=== PATIENT | male | born 1940 | race Caucasian/White ===

== ENCOUNTER 2018-03-20 07:08 | Inpatient (IN) | payer BC, OTHER ==
--- NOTE | 2018-03-20 07:09 | PDOC ---
History of Present Illness - General Chief Complaint: Pain, Acute Stated Complaint: LEFT ARM PAIN Time Seen by Provider: 03/20/18 07:09 History Source: Patient Exam Limitations: No Limitations - History of Present Illness Initial Comments: 78 yo M history CAD, GERD presents with cp radiating down the left arm that started this morning. He states that he was diagnosed with CAD after an abnormal stress test followed by a cardiac cath last week, he is scheduled for a 4V CABG in 4 days. He denies SOB, N/V, diaphoresis, leg swelling. Cp was a pressure sensation, has improved now. He continues to have pain in the left arm. He did not take his aspirin this morning. Past History - Past Medical History Allergies/Adverse Reactions: Allergies Allergy/AdvReac Type Severity Reaction Status Date / Time No Known Allergies Allergy Verified 03/20/18 07:09 Home Medications: Ambulatory Orders Aspirin [Aspirin EC] 81 mg PO DAILY 03/20/18 Esomeprazole Magnesium [Nexium 24Hr] 40 mg PO DAILY 03/20/18 Gabapentin 800 mg PO QID 03/20/18 Rosuvastatin Calcium [Crestor] 5 mg PO DAILY 03/20/18 Valacyclovir HCl [Valtrex] 500 mg PO DAILY 03/20/18 Review of Systems - Review of Systems Able to Perform ROS?: Yes Comments:: GENERAL/CONSTITUTIONAL: No fever or chills. No weakness. HEAD, EYES, EARS, NOSE AND THROAT: No change in vision. No ear pain or discharge. No sore throat. CARDIOVASCULAR: +Chest pain, no shortness of breath. RESPIRATORY: No cough, wheezing, or hemoptysis. GASTROINTESTINAL: No nausea, vomiting, diarrhea or constipation. GENITOURINARY: No dysuria, frequency, or change in urination. MUSCULOSKELETAL: No joint or muscle swelling or pain. No neck or back pain. +L arm pain. SKIN: No rash NEUROLOGIC: No headache, vertigo, loss of consciousness, or change in strength/ sensation. ENDOCRINE: No increased thirst. No abnormal weight change. HEMATOLOGIC/LYMPHATIC: No anemia, easy bleeding, or history of blood clots. ALLERGIC/IMMUNOLOGIC: No hives or skin allergy. *Physical Exam - Physical Exam Comments: GENERAL: Awake, alert, and fully oriented, in no acute distress HEAD: No signs of trauma EYES: PERRLA, EOMI, sclera anicteric, conjunctiva clear ENT: Auricles normal inspection, hearing grossly normal, nares patent, oropharynx clear without exudates. Moist mucosa NECK: Normal ROM, supple, no lymphadenopathy, JVD, or masses LUNGS: Breath sounds equal, clear to auscultation bilaterally. No wheezes, and no crackles HEART: Regular rate and rhythm, normal S1 and S2, no murmurs, rubs or gallops ABDOMEN: Soft, nontender, normoactive bowel sounds. No guarding, no rebound. No masses EXTREMITIES: Normal range of motion, no edema. No clubbing or cyanosis. No cords, erythema, or tenderness NEUROLOGICAL: Cranial nerves II through XII grossly intact. Normal speech, normal gait. Motor and sensation intact. SKIN: Warm, Dry, normal turgor, no rashes or lesions noted. Heart Score/ECG Review - History History: Highly suspicious - Electrocardiogram EKG: Normal - Age Age: >/= 65 - Risk Factors Risk Factors Heart Score: Yes Hx Hypertension, Yes Positive family hx of cardiac disease, Yes Hx Obesity Based on the list above the patient has:: >/=3 risk factors or Hx atherosclerotic disease - ECG Impressions Comment:: EKG read 07:18- Sinus rhythm 63 bpm with 1st degree AV block. +LVH. No ST/T changes. ED Treatment Course - LABORATORY CBC & Chemistry Diagram: 03/20/18 07:23 03/20/18 07:23 Medical Decision Making - Medical Decision Making 03/20/18 07:33 Pt with recently diagnosed CAD- follows up with his primary and document processing specialist at [facility]. He is scheduled for CABG later this week. Initial EKG with no ST/T changes. Will f/u CXR and labs, call his cardio to discuss, as he will likely require transfer. 03/20/18 08:53 Lab results d/w patient at bedside. He has already been accepted to [facility] on the service of his document processing specialist, Dr. Charles. Awaiting confirmation of bed placement and ambulance. 03/20/18 12:25 Called [facility] to follow up. They are still awaiting a cardiac step-down bed. Will keep patient NPO, as it is unclear if he is having CABG today (and transfer center was not certain). 03/20/18 15:46 Called [facility] transfer center- patient has priority for transfer, however, they do not yet have a bed. 03/20/18 15:57 D/w hospitalist MOSAIC LAYER Daniel, as patient has been in ED for almost 9 hours and still not bed available at [facility]. Will place on obs on hospitalist service. Patient is currently on heparin drip, mildly bradycardic (which is his baseline) . *DC/Admit/Observation/Transfer Diagnosis at time of Disposition: Chest pain Qualifiers: Chest pain type: unspecified Qualified Code(s): R07.9 - Chest pain, unspecified - Discharge Dispostion Condition at time of disposition: Guarded Decision to Admit order: Yes - Referrals - Patient Instructions - Post Discharge Activity - Transfer to Acute Care Facility Receiving Facility: [facility]) Accepting Physician:: Dr. Charles
[2018-03-20] MEDS ORDERED: ASPIRIN 81 MG CHEWABLE TABLETS PO ONE (07:24)
[2018-03-20 08:10] LABS: BASO % 0.8 % (0-2.0); EOS % 5.2 % (0-4.5); HEMATOCRIT 44.8 % (35.4-49); HEMOGLOBIN 14.9 GM/dl (11.7-16.9); LYMPH % 39.3 % (8-40); MCH 32.9 pg (25.7-33.7); MCHC 33.4 g/dl (32.0-35.9); MEAN CELL VOLUME 98.6 fl (80-96); MEAN PLT VOLUME 8.7 fl (7.5-11.1); MONO % 8.8 % (3.8-10.2); NEUT % 45.9 % (42.8-82.8); PLATELET COUNT 160 K/MM3 (134-434); RBC 4.55 M/mm3 (4.00-5.60); RDW 13.1 % (11.9-15.9); WHITE BLOOD COUNT 5.9 K/mm3 (4.0-10.8)
[2018-03-20 08:11] LABS: ALBUMIN 4.2 g/dl (3.5-5.0); ALK PHOS 42 U/L (32-92); ANION GAP 7 MMOL/L (8-16); BILIRUBIN,TOTAL 0.5 mg/dl (0.2-1.0); BLOOD UREA NITROGEN 17 mg/dl (7-18); CALCIUM 9.2 mg/dl (8.4-10.2); CHLORIDE 105 mmol/L (98-107); CO2 28 mmol/L (22-28); CREATININE 1.1 mg/dl (0.6-1.3); GLUCOSE,RANDOM 119 mg/dl (74-106); POTASSIUM 4.5 mmol/L (3.5-5.1); SGOT/AST 27 U/L (10-42); SGPT/ALT 28 U/L (10-40); SODIUM 140 mmol/L (136-145); TOT PROT 6.6 g/dl (6.4-8.3)
[2018-03-20 08:57] LABS: INR 1.06 (0.82-1.09); PROTHROMBIN TIME (PATIENT) 11.9 SEC (10.2-13.0)
[2018-03-20 09:05] LABS: ACTIVATED PTT 26.9 SECONDS (25.2-36.5)
[2018-03-20] MEDS ORDERED: HEPARIN NA (PORCINE) 5,000 UNITS/ML 1ML VIAL IVPUSH ONE (10:21)
[2018-03-20] MEDS ORDERED: HEPARIN INFUSION - 25,000 UNITS/500 ML INFUS.BAG IVPB ONE (10:23)
[2018-03-20] MEDS ORDERED: HEPARIN NA (PORCINE) 5,000 UNITS/ML 1ML VIAL ONE (10:23)
[2018-03-20] MEDS ORDERED: HEPARIN INFUSION - 25,000 UNITS/500 ML INFUS.BAG IVPB SCH (10:30)
[2018-03-20] MEDS ORDERED: ROSUVASTATIN CA 5 MG TABLET (FP) PO ONE (15:58)
--- NOTE | 2018-03-20 16:19 | HP ---
CHIEF COMPLAINT: Chest pressure PCP: Dr. Jero South [phone] Forest Resources Professor: Dr. Dallas Charlse [phone] CT surgeon: Dr. 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 Presented to the ED today with a complaint of left upper arm pain which started when he got out of bed at about 6:30am. The pain lasted until about 7:30am when he arrived at the ED. There were no exacerbating or alleviating factors, the pain spontaneously resolved. Patient states he was diagnosed with CAD last week following an abnormal stress test and cardiac catheterization. He is scheduled for a four-vessel CABG on 03/24/[address] [facility] [address] Dr[address] Yost. During this morning's episode of left arm pain, there was no associated SOB, FRANKLIN, palpitations, dizziness, diaphoresis. Patient has not experienced orthopnea, PND, or lower extremity edema at any time. Patient has been accepted by [facility] for transfer, waiting on bed availability. ER course was notable for: (1) HR 50s (baseline) (2) Troponins neg x 2 (3) ECG: Sinus rhythm 63 bpm; 1st degree AV block (4) ASA 325mg x 1; heparin drip started Recent Travel: No PAST MEDICAL HISTORY: Hyperlipidemia Asymptomatic Bradycardia (baseline) Renal calculi (1967) Small fiber sensory neuropathy Coronary artery disease Obstructive sleep apnea Herpes keratitis PAST SURGICAL HISTORY: Craniotomy for a parasitic granuloma (1978) Hernia repair x 2 (1973, 1981) Social History: Smoking: no Alcohol: no Drugs: no Allergies No Known Allergies Allergy (Verified 03/20/18 07:09) HOME MEDICATIONS: Home Medications Medication Instructions Recorded Aspirin [Aspirin EC] 81 mg PO DAILY 03/20/18 Esomeprazole Magnesium [Nexium 40 mg PO DAILY 03/20/18 24Hr] Gabapentin 800 mg PO QID 03/20/18 Rosuvastatin Calcium [Crestor] 5 mg PO DAILY 03/20/18 Valacyclovir HCl [Valtrex] 500 mg PO DAILY 03/20/18 REVIEW OF SYSTEMS CONSTITUTIONAL: Absent: fever, chills, diaphoresis, generalized weakness, malaise, loss of appetite, weight change HEENT: Absent: rhinorrhea, nasal congestion, throat pain, throat swelling, difficulty swallowing, mouth swelling, ear pain, eye pain, visual changes CARDIOVASCULAR: +upper left arm pain x 1 hour Absent: chest pain, syncope, palpitations, irregular heart rate, lightheadedness , peripheral edema RESPIRATORY: Absent: cough, shortness of breath, dyspnea with exertion, orthopnea, wheezing, stridor, hemoptysis GASTROINTESTINAL: Absent: abdominal pain, abdominal distension, nausea, vomiting, diarrhea, constipation, melena, hematochezia GENITOURINARY: Absent: dysuria, frequency, urgency, hesitancy, hematuria, flank pain, genital pain MUSCULOSKELETAL: Absent: myalgia, arthralgia, joint swelling, back pain, neck pain SKIN: Absent: rash, itching, pallor HEMATOLOGIC/IMMUNOLOGIC: Absent: easy bleeding, easy bruising, lymphadenopathy, frequent infections ENDOCRINE: Absent: unexplained weight gain, unexplained weight loss, heat intolerance, cold intolerance NEUROLOGIC: Absent: headache, focal weakness or paresthesias, dizziness, unsteady gait, seizure, mental status changes, bladder or bowel incontinence PSYCHIATRIC: Absent: anxiety, depression, suicidal or homicidal ideation, hallucinations. PHYSICAL EXAMINATION Vital Signs Temperature 98.3 F 03/20/18 07:08 Pulse Rate 51 L 03/20/18 16:00 Respiratory Rate 12 03/20/18 16:00 Blood Pressure 151/79 03/20/18 16:00 O2 Sat by Pulse Oximetry (%) 99 03/20/18 16:00 GENERAL: Awake, alert, and fully oriented, in no acute distress. HEAD: Normal with no signs of trauma. LUNGS: Breath sounds equal, clear to auscultation bilaterally. No wheezes, and no crackles. No accessory muscle use. HEART: Regular rate and rhythm, S1 and S2 ABDOMEN: Soft, nontender, not distended MUSCULOSKELETAL: Normal range of motion at all joints. No bony deformities or tenderness. No CVA tenderness. UPPER EXTREMITIES: 2+ pulses, warm, well-perfused. No cyanosis. No clubbing. No peripheral edema. LOWER EXTREMITIES: 2+ pulses, warm, well-perfused. No calf tenderness. No peripheral edema. NEUROLOGICAL: Cranial nerves II-XII intact. Normal speech. Laboratory Results - last 24 hr 03/20/18 03/20/18 03/20/18 07:23 07:23 07:23 WBC 5.9 RBC 4.55 Hgb 14.9 Hct 44.8 MCV 98.6 H MCH 32.9 MCHC 33.4 RDW 13.1 Plt Count 160 MPV 8.7 Absolute Neuts (auto) 2.8 Neutrophils % 45.9 Lymphocytes % 39.3 Monocytes % 8.8 Eosinophils % 5.2 H Basophils % 0.8 PT with INR INR PTT (Actin FS) Sodium 140 Potassium 4.5 Chloride 105 Carbon Dioxide 28 Anion Gap 7 L BUN 17 Creatinine 1.1 Creat Clearance w eGFR > 60 Random Glucose 119 H Calcium 9.2 Total Bilirubin 0.5 AST 27 ALT 28 Alkaline Phosphatase 42 Creatine Kinase 493 H Creatine Kinase Index 1.8 CK-MB (CK-2) 9.1 H Troponin I < 0.03 Total Protein 6.6 Albumin 4.2 Blood Type Antibody Screen 03/20/18 03/20/18 03/20/18 07:25 07:27 14:56 WBC RBC Hgb Hct MCV MCH MCHC RDW Plt Count MPV Absolute Neuts (auto) Neutrophils % Lymphocytes % Monocytes % Eosinophils % Basophils % PT with INR 11.9 INR 1.06 PTT (Actin FS) 26.9 Sodium Potassium Chloride Carbon Dioxide Anion Gap BUN Creatinine Creat Clearance w eGFR Random Glucose Calcium Total Bilirubin AST ALT Alkaline Phosphatase Creatine Kinase Creatine Kinase Index CK-MB (CK-2) Troponin I < 0.03 Total Protein Albumin Blood Type A POSITIVE Antibody Screen Negative 03/20/18 15:04 WBC RBC Hgb Hct MCV MCH MCHC RDW Plt Count MPV Absolute Neuts (auto) Neutrophils % Lymphocytes % Monocytes % Eosinophils % Basophils % PT with INR INR PTT (Actin FS) Sodium Potassium Chloride Carbon Dioxide Anion Gap BUN Creatinine Creat Clearance w eGFR Random Glucose Calcium Total Bilirubin AST ALT Alkaline Phosphatase Creatine Kinase 94 Creatine Kinase Index CK-MB (CK-2) Troponin I Total Protein Albumin Blood Type Antibody Screen ASSESSMENT/PLAN 78 year-old male with a PMH significant for HLD, asymptomatic bradycardia, renal calculi, small fiber sensory neuropathy, h/o herpes keratitis, JP, and recently diagnosed CAD. Scheduled for a four-vessel CABG on 03/24 at [facility]. Placed on observation for chest pain, pending transfer. Acute coronary syndrome Coronary artery disease --positive stress test, positive cardiac cath one week ago, scheduled for CABG in four days --episode of chest pressure/pain this morning, now resolved --troponins neg x 2, third pending --ECG not indicative of acute ischemic event --continue ASA, statin --continue heparin drip --telemetry monitoring Hyperlipidemia --continue Crestor Asymptomatic bradycardia --at baseline --telemetry monitoring Renal calculi --stable Small fiber sensory neuropathy --at baseline --continue Gabapentin h/o Herpes keratitis --on prophylactic valacyclovir, continue JP --CPAP at night FEN Fluids: PO intake adequate Electrolytes: replete as indicated Nutrition: NPO after midnight DVT prophylaxis: on heparin drip Dispo: awaiting transfer to [facility]. Full code. Visit type - Emergency Visit Emergency Visit: Yes ED Registration Date: 03/21/18 Care time: The patient presented to the Emergency Department on the above date and was hospitalized for further evaluation of their emergent condition. - New Patient This patient is new to me today: No - Critical Care Critical Care patient: No
[2018-03-20] MEDS: valACYclovir HCL 500 MG TABLET (FP) PO SCH (16:40)
[2018-03-20] MEDS ORDERED: PANTOPRAZOLE SODIUM 40 MG VIAL IVPUSH SCH (16:45)
[2018-03-20] MEDS ORDERED: PANTOPRAZOLE SODIUM 40 MG VIAL ONE (16:53)
[2018-03-20 17:35] VITALS: BMI 27.7
[2018-03-20] MEDS ORDERED: PATIENT'S OWN MEDICATION (NON-FORMULARY) (Gabapentin [Gabapentin] 800 MG) PO SCH (18:00)
[2018-03-20] MEDS: GABAPENTIN 400 MG CAPSULE (FP) PO SCH ×2 (18:04→21:25)
[2018-03-20] MEDS: PANTOPRAZOLE SODIUM 40 MG VIAL IVPUSH SCH (21:25)
[2018-03-20] MEDS ORDERED: ROSUVASTATIN CA 5 MG TABLET (FP) PO SCH (22:00)
[2018-03-20] MEDS ORDERED: traZODone HCL 50 MG TABLET (FP) PO SCH (22:00)
[2018-03-20] MEDS ORDERED: FLUTICASONE PROP 0.05% 16 GM NASAL SPRAY NS SCH (22:00)
[2018-03-21 08:38] LABS: ALBUMIN 3.8 g/dl (3.5-5.0); ALK PHOS 41 U/L (32-92); ANION GAP 6 MMOL/L (8-16); BILIRUBIN,TOTAL 0.8 mg/dl (0.2-1.0); BLOOD UREA NITROGEN 17 mg/dl (7-18); CALCIUM 8.8 mg/dl (8.4-10.2); CHLORIDE 103 mmol/L (98-107); CO2 26 mmol/L (22-28); CREATININE 1.1 mg/dl (0.6-1.3); GLUCOSE,RANDOM 119 mg/dl (74-106); MAGNESIUM 1.9 mg/dL (1.8-2.4); PHOSPHOROUS 3.9 mg/dl (2.5-4.6); SGOT/AST 22 U/L (10-42); SGPT/ALT 23 U/L (10-40); SODIUM 135 mmol/L (136-145); TOT PROT 6.2 g/dl (6.4-8.3)
[2018-03-21 09:38] LABS: BASO % 0.8 % (0-2.0); EOS % 3.8 % (0-4.5); HEMATOCRIT 41.9 % (35.4-49); HEMOGLOBIN 14.5 GM/dl (11.7-16.9); LYMPH % 38.6 % (8-40); MCH 33.7 pg (25.7-33.7); MCHC 34.5 g/dl (32.0-35.9); MEAN CELL VOLUME 97.8 fl (80-96); MEAN PLT VOLUME 8.8 fl (7.5-11.1); MONO % 7.4 % (3.8-10.2); NEUT % 49.4 % (42.8-82.8); PLATELET COUNT 162 K/MM3 (134-434); RBC 4.29 M/mm3 (4.00-5.60); RDW 13.2 % (11.9-15.9); WHITE BLOOD COUNT 6.9 K/mm3 (4.0-10.8)
[2018-03-21] MEDS ORDERED: ASPIRIN 81 MG CHEWABLE TABLETS PO SCH (10:00)
[2018-03-21] MEDS ORDERED: ASPIRIN COATED 81 MG TABLET.EC PO SCH (10:00)
[2018-03-21] MEDS: valACYclovir HCL 500 MG TABLET (FP) PO SCH (10:04)
[2018-03-21] MEDS: PANTOPRAZOLE SODIUM 40 MG VIAL IVPUSH SCH (10:05)
[2018-03-21] MEDS: GABAPENTIN 400 MG CAPSULE (FP) PO SCH ×3 (10:05→17:59)
--- NOTE | 2018-03-21 10:22 | CON.CARD ---
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 Magdaleno Charles at [facility]) and scheduled for CABG with Dr. Turner Yost this week, in addition, history of hypercholesterolemia, renal calculi, JP and small fiber sensory neuropathy. He presented to [facility] with left arm pain which has resolved spontaneously. He is currently on Heparin drip. He denies SOB or palpitations. He denies paroxysmal nocturnal dyspnea or orthopnea. He denies nausea, vomiting , diarrhea or abdominal pain. He denies headache or lightheadedness. He is currently awaiting transfer to [facility]. PAST SURGICAL HISTORY: Craniotomy for a parasitic granuloma (1978) Hernia repair x 2 (1973, 1981) - History Source History Provided By: Patient, Medical Record Limitations to Obtaining History: No Limitations - Past Medical History Cardio/Vascular: Yes: Hyperlipdemia Endocrine: No: Diabetes Mellitus Additional Medical History: Paracytic granuloma, renal calculi, neuropathy - Past Surgical History Past Surgical History: Yes: Craniotomy, Hernia Repair - Alcohol/Substance Use Hx Alcohol Use: No - Smoking History Smoking history: Never smoked Have you smoked in the past 12 months: No Home Medications - Allergies Allergies/Adverse Reactions: Allergies Allergy/AdvReac Type Severity Reaction Status Date / Time No Known Allergies Allergy Verified 03/20/18 07:09 - Home Medications Home Medications: Ambulatory Orders Aspirin [ASA -] 81 mg PO DAILY tab.chew 03/20/18 Azelastine HCl 1 spray IH BID 03/20/18 Esomeprazole Magnesium [Nexium 24Hr] 40 mg PO BID 03/20/18 Fluticasone Prop 0.05% Nasal [Flonase -] 2 spray IH HS 03/20/18 Gabapentin [Neurontin -] 800 mg PO QID capsule 03/20/18 Rosuvastatin [Crestor -] 5 mg PO DAILY tablet 03/20/18 Trazodone HCl 150 mg PO HS 03/20/18 Valacyclovir HCl [Valtrex -] 500 mg PO DAILY tablet 03/20/18 Review of Systems - Review of Systems Constitutional: denies: Chills, Fever Cardiovascular: reports: Chest Pain. denies: Palpitations, Shortness of Breath Respiratory: denies: Cough, Hemoptysis, Orthopnea, PND, SOB, SOB on Exertion Gastrointestinal: denies: Abdominal Pain, Constipation, Diarrhea, Melena, Nausea , Rectal Bleeding, Vomiting Neurological: denies: Dizziness, Headache, Seizure, Syncope Vital Signs: Vital Signs Temperature 98.3 F 03/21/18 09:00 Pulse Rate 65 03/21/18 09:00 Respiratory Rate 18 03/21/18 09:00 Blood Pressure 134/58 L 03/21/18 09:00 O2 Sat by Pulse Oximetry (%) 98 03/21/18 09:00 Constitutional: Yes: Well Nourished Eyes: Yes: Conjunctiva Clear, PERRL HENT: Yes: Atraumatic Neck: Yes: Supple Respiratory: Yes: Regular, CTA Bilaterally Gastrointestinal: Yes: Normal Bowel Sounds, Soft. No: Tenderness Cardiovascular: Yes: Regular Rate and Rhythm JVD: No Carotid Bruit: No PMI: Non-Displaced Heart Sounds: Yes: S1, S2 Edema: No - Other Data Labs, Other Data: CBC, BMP 03/21/18 07:35 03/21/18 07:35 INR, PTT INR 1.06 (0.82-1.09) 03/20/18 07:27 Troponin, BNP 03/20/18 03/20/18 14:56 21:00 Troponin I < 0.03 < 0.03 Sinus bradycardia Imaging - Results Chest X-ray: Report Reviewed (Unremarkable) EKG: Report Reviewed Problem List - Problems (1) CAD (coronary artery disease) Code(s): I25.10 - ATHSCL HEART DISEASE OF [place] CORONARY ARTERY W/O ANG PCTRS (2) Hypercholesterolemia Code(s): E78.00 - PURE HYPERCHOLESTEROLEMIA, UNSPECIFIED (3) Neuropathy Code(s): G62.9 - POLYNEUROPATHY, UNSPECIFIED (4) Renal calculi Code(s): N20.0 - CALCULUS OF KIDNEY (5) JP (obstructive sleep apnea) Code(s): G47.33 - OBSTRUCTIVE SLEEP APNEA (ADULT) (PEDIATRIC) (6) Chest pain Code(s): R07.9 - CHEST PAIN, UNSPECIFIED Qualifiers: Chest pain type: unspecified Qualified Code(s): R07.9 - Chest pain, unspecified Assessment/Plan 1. Multivessel CAD awaiting CABG, angina 2. Hypercholesterolemia 3. OSAS 4. History of neuropathy PLAN: 1. Heparin drip for now, but may be stopped once troponins are negative 2. Discontinue ASA as preparation for CABG 3. Continue Crestor 4. Serial cardiac enzymes 5. Transfer arrangements to [facility]. Await bed at [facility] Further plans are to follow Chetan Mccurdy MD
[2018-03-21] MEDS ORDERED: HEPARIN NA (PORCINE) 5,000 UNITS/ML 1ML VIAL IVPUSH PRN ×2 (12:14)
[2018-03-21] MEDS ORDERED: HEPARIN INFUSION - 25,000 UNITS/500 ML INFUS.BAG IVPB SCH (12:15)
--- NOTE | 2018-03-21 12:59 | EKG ---
Test Reason : Blood Pressure : / mmHG Vent. Rate : 056 BPM Atrial Rate : 056 BPM P-R Int : 194 ms QRS Dur : 094 ms QT Int : 454 ms P-R-T Axes : 059 -27 038 degrees QTc Int : 438 ms SINUS BRADYCARDIA MINIMAL VOLTAGE CRITERIA FOR LVH, MAY BE NORMAL VARIANT CANNOT RULE OUT ANTERIOR INFARCT , AGE UNDETERMINED ABNORMAL ECG NO PREVIOUS ECGS AVAILABLE Confirmed by Gopal Blas ([id number]) on 03/21/2018 12:59:23 PM Referred By: MARK OLIVERA Confirmed By:Gopal Blas
--- NOTE | 2018-03-21 13:03 | EKG ---
Test Reason : Blood Pressure : / mmHG Vent. Rate : 063 BPM Atrial Rate : 063 BPM P-R Int : 210 ms QRS Dur : 096 ms QT Int : 442 ms P-R-T Axes : 072 -29 069 degrees QTc Int : 452 ms SINUS RHYTHM WITH 1ST DEGREE A-V BLOCK MINIMAL VOLTAGE CRITERIA FOR LVH, MAY BE NORMAL VARIANT BORDERLINE ECG NO PREVIOUS ECGS AVAILABLE Confirmed by Gopal Blas ([id number]) on 03/21/2018 1:02:56 PM Referred By: MARIA ELENA COATS Confirmed By:Gopal Blas
--- NOTE | 2018-03-21 16:20 | DS ---
Physical Exam: SUBJECTIVE: Patient seen and examined oob to chair. Feels well. No further episodes of chest or arm discomfort. OBJECTIVE: Vital Signs Period Temp Pulse Resp BP Sys/Arellano Pulse Ox Last 24 Hr 98.2 F-98.3 F 48-65 16-18 126-161/50-77 94-99 PHYSICAL EXAM GENERAL: Awake, alert, and fully oriented, in no acute distress. HEAD: Normal with no signs of trauma. LUNGS: Breath sounds equal, clear to auscultation bilaterally. No wheezes, and no crackles. No accessory muscle use. HEART: Regular rate and rhythm, S1 and S2 ABDOMEN: Soft, nontender, not distended MUSCULOSKELETAL: Normal range of motion at all joints. No bony deformities or tenderness. No CVA tenderness. UPPER EXTREMITIES: 2+ pulses, warm, well-perfused. No cyanosis. No clubbing. No peripheral edema. LOWER EXTREMITIES: 2+ pulses, warm, well-perfused. No calf tenderness. No peripheral edema. NEUROLOGICAL: Cranial nerves II-XII intact. Normal speech. LABS Laboratory Results - last 24 hr 03/20/18 03/20/18 03/21/18 16:40 21:00 07:35 WBC 6.9 RBC 4.29 Hgb 14.5 Hct 41.9 MCV 97.8 H MCH 33.7 MCHC 34.5 RDW 13.2 Plt Count 162 MPV 8.8 Absolute Neuts (auto) 3.3 Neutrophils % 49.4 Lymphocytes % 38.6 Monocytes % 7.4 Eosinophils % 3.8 Basophils % 0.8 PTT (Actin FS) 62.6 H D Sodium Potassium Chloride Carbon Dioxide Anion Gap BUN Creatinine Creat Clearance w eGFR Random Glucose Calcium Phosphorus Magnesium Total Bilirubin AST ALT Alkaline Phosphatase Troponin I < 0.03 Total Protein Albumin 03/21/18 03/21/18 07:35 08:07 WBC RBC Hgb Hct MCV MCH MCHC RDW Plt Count MPV Absolute Neuts (auto) Neutrophils % Lymphocytes % Monocytes % Eosinophils % Basophils % PTT (Actin FS) 57.4 H Sodium 135 L Potassium 4.0 Chloride 103 Carbon Dioxide 26 Anion Gap 6 L BUN 17 Creatinine 1.1 Creat Clearance w eGFR > 60 Random Glucose 119 H Calcium 8.8 Phosphorus 3.9 Magnesium 1.9 Total Bilirubin 0.8 AST 22 ALT 23 Alkaline Phosphatase 41 Troponin I Total Protein 6.2 L Albumin 3.8 HOSPITAL COURSE: Date of Admission:03/21/18 Date of Discharge: 03/21/18 Pre hospital course 78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 Presented to the ED today with a complaint of left upper arm pain which started when he got out of bed at about 6:30am. The pain lasted until about 7:30am when he arrived at the ED. There were no exacerbating or alleviating factors, the pain spontaneously resolved. Patient states he was diagnosed with CAD last week following an abnormal stress test and cardiac catheterization. He is scheduled for a four-vessel CABG on 03/24/[address] [facility] [address] surgeon Dr. Yost. During this morning's episode of left arm pain, there was no associated SOB, FRANKLIN, palpitations, dizziness, diaphoresis. Patient has not experienced orthopnea, PND, or lower extremity edema at any time. Patient has been accepted by [facility] for transfer, waiting on bed availability. ER course was notable for: (1) HR 50s (baseline) (2) Troponins neg x 2 (3) ECG: Sinus rhythm 63 bpm; 1st degree AV block (4) ASA 325mg x 1; heparin drip started Subsequent hospital course 78 year-old male with a PMH significant for HLD, asymptomatic bradycardia, renal calculi, small fiber sensory neuropathy, h/o herpes keratitis, JP, and recently diagnosed CAD. Scheduled for a four-vessel CABG on 03/24 at [facility]. Placed on observation for chest pain, pending transfer. Acute coronary syndrome Coronary artery disease --positive stress test, positive cardiac cath one week ago, scheduled for CABG in four days --episode of chest pressure/pain on the morning of 03/20, spontaneously resolved after one hour, no further recurrence during hospital stay --troponins neg x 3 --ECG not indicative of acute ischemic event --started on heparin drip --last dose ASA 03/21 @ 10:00am Hyperlipidemia --continued Crestor Asymptomatic bradycardia --at baseline Renal calculi --stable Small fiber sensory neuropathy --at baseline --continued Gabapentin h/o Herpes keratitis --on prophylactic valacyclovir, continued JP --CPAP at night Dispo: Transfer to [facility]. Full code. Minutes to complete discharge: 35 Discharge Summary Reason For Visit: CORONARY ATERY DISEASE Current Active Problems CAD (coronary artery disease) (Acute) Chest pain (Acute) Hypercholesterolemia (Acute) Neuropathy (Acute) JP (obstructive sleep apnea) (Acute) Renal calculi (Acute) Condition: Stable - Instructions Disposition: TRANSFER ACUTE CARE/OTHER HOSP - Home Medications Comprehensive Discharge Medication List: Ambulatory Orders Azelastine HCl 1 spray IH BID 03/20/18 Fluticasone Prop 0.05% Nasal [Flonase -] 2 spray IH HS 03/20/18 Trazodone HCl 150 mg PO HS 03/20/18 Pantoprazole Sodium [Protonix IV] 40 mg IVPUSH BID vial 03/21/18 This patient is new to me today: No Emergency Visit: Yes ED Registration Date: 03/21/18 Care time: The patient presented to the Emergency Department on the above date and was hospitalized for further evaluation of their emergent condition. Critical Care patient: No - Discharge Referral Referred to [facility] No
[2018-03-21 18:19] VITALS: BP 147/60; PULSE 66; TEMP 98.5
== END 2018-03-21 18:50 | disposition short-term general hospital (02) | DRG 303 ==
LOC: FER 07:08 → FM/S 15:55 → OBSVTOIN 03-21 13:02
PROVIDERS: ADMIT Hospitalist; ATTEND Nurse Practitioner Acute Care
PROC: 5A09357 Assistance with Respiratory Ventilation, Less than 24 Consecutive Hours, Continuous Positive Airway Pressure (ICD-10-PCS; principal; 2018-03-20)
DX: I25.119 Atherosclerotic heart disease of native coronary artery with unspecified angina pectoris (principal); I24.9 Acute ischemic heart disease, unspecified; B00.52 Herpesviral keratitis; E78.5 Hyperlipidemia, unspecified; R00.1 Bradycardia, unspecified; N20.0 Calculus of kidney; G47.33 Obstructive sleep apnea (adult) (pediatric); K21.9 Gastro-esophageal reflux disease without esophagitis; G62.9 Polyneuropathy, unspecified; R07.9 Chest pain, unspecified
CPT/HCPCS: 36415; 71045-TC-FY; 80053; 82550; 82553; 83735; 84100; 84484; 85025; 85610; 85730; 86850; 86900; 86901; 93005; 94660; 99285-25; G0378; J1644

== ENCOUNTER 2022-03-17 12:09 | Emergency (ER) | payer BC, OTHER ==
[2022-03-17 12:13] VITALS: RESP 18; TEMP 98.3; BMI 27.6
[2022-03-17 13:05] LABS: HEMATOCRIT 39.2 % (35.4-49); HEMOGLOBIN 13.6 G/dL (11.7-16.9); MCH 32.9 pg (25.7-33.7); MCHC 34.6 g/dl (32.0-35.9); MEAN PLT VOLUME 8.4 fl (7.5-11.1); PLATELET COUNT 155.6 10^3/uL (134-434); RBC 4.13 10^6/uL (4.00-5.60); RDW 14.4 % (11.9-15.9); WHITE BLOOD COUNT 7.7 10^3/uL (4.0-10.8)
[2022-03-17 13:14] LABS: PLATELET ESTIMATE ADEQUATE
[2022-03-17 13:27] LABS: ALBUMIN 4.4 g/dl (3.4-5.0); BILIRUBIN,TOTAL 0.9 mg/dl (0.2-1); CALCIUM 8.9 mg/dl (8.5-10); CREATININE 1.1 mg/dl (0.55-1.3); TOT PROT 6.7 g/dl (6.4-8.2)
[2022-03-17] MEDS ORDERED: ASPIRIN 81 MG CHEWABLE TABLETS PO ONE (16:09)
[2022-03-17] MEDS ORDERED: ASPIRIN 81 MG CHEWABLE TABLETS ONE (16:29)
[2022-03-17 23:15] VITALS: BP 170/70; PULSE 48
== END 2022-03-18 01:30 | disposition short-term general hospital (02) ==
LOC: FER 12:09
DX: I24.9 Acute ischemic heart disease, unspecified (principal)
CPT/HCPCS: 36415; 71045-TC-FY; 80053; 84484; 85025; 93005; 99285-25; C9803-CS; U0003; U0005